=== PATIENT | male | born 1955 | race Two or more races ===

== ENCOUNTER 2022-07-27 20:23 | Emergency (ER) | payer BC, OTHER ==
[~2022-07-27] VITALS: Ht 172.7 cm; Wt 64.5 kg
[2022-07-28] MEDS ORDERED: TOBR0.3S37 OP (02:19)
[2022-07-28 02:26] VITALS: BP 145/84
== END 2022-07-28 02:30 | disposition home or self-care (01) ==
LOC: ER 20:23
DX: H00.015 Hordeolum externum left lower eyelid (principal)

== ENCOUNTER 2022-09-02 15:57 | Inpatient (IN) | payer OTHER, MEDICARE ==
[~2022-09-02] VITALS: Ht 170.2 cm; Wt 68.0 kg
[~2022-09-02 15:57] MED LIST: TOBR0.3S37 OP
[2022-09-02 16:00] VITALS: BP 122/75
[2022-09-02 18:23] LABS: Urine Bacteria NONE SEEN /hpf (None Seen); Urine Blood Negative /uL (Negative); Urine Hyaline Cast FEW /lpf (0 - 2); Urine Mucus FEW (None Seen); Urine Specific Gravity 1.031 (1.001-1.035); Urine WBC 1 /hpf (0 - 3)
[2022-09-02 18:44] LABS: Basophils # (auto) 0.1 10 ^3/uL (0-0.2); Eosinophils # (auto) 0.2 10 ^3/uL (0-0.8); Eosinophils % (auto) 2.5 % (0.0-7.0); Hematocrit 42.6 % (41.0-53.0); Hemoglobin 14.7 g/dL (13.5-17.5); Lymphocytes # (auto) 1.8 10 ^3/uL (0.4-5.4); Lymphocytes % (auto) 29.6 % (10.0-50.0); Mean Corpuscular Hemoglobin 31.5 pg (28.0-32.0); Mean Corpuscular Hgb Conc. 34.4 g/dL (32.0-36.0); Mean Corpuscular Volume 91.6 fL (80.0-100.0); Monocytes # (auto) 0.5 10 ^3/uL (0-1.3); Monocytes % (auto) 8.2 % (0.0-12.0); Neutrophils # (auto) 3.6 10 ^3/uL (1.6-8.6); Neutrophils % (auto) 58.7 % (37.0-80.0); Nucleated Red Blood Cells % 0.1 %; Red Blood Cells 4.65 10^6/uL (4.5-5.90); Red Cell Distribution Width 12.8 % (11.8-14.3); White Blood Cell 6.1 10^3/uL (4.4-10.8)
[2022-09-02 18:59] LABS: Albumin 4.2 g/dL (3.4-5.0); BUN/Creatinine Ratio 23.2; Calcium 9.4 mg/dL (8.5-10.1); Potassium 4.1 mmol/L (3.5-5.1)
[2022-09-02 19:02] LABS: Bilirubin, Total 0.7 mg/dL (0.2-1.0); Total Protein 7.3 g/dL (6.4-8.2)
[2022-09-03] MEDS ORDERED: LORazepam 0.5 MG TAB PO PRN (00:15)
[2022-09-03] MEDS ORDERED: ZOLPIDEM TARTRATE 5 MG TAB PO PRN (00:15)
[2022-09-03] MEDS ORDERED: ACETAMINOPHEN 325 MG TAB PO PRN (00:15)
[2022-09-03] MEDS ORDERED: MORPHINE SULFATE 4 MG/ML SYR/VIAL IV PRN (00:15)
[2022-09-03] MEDS ORDERED: ALUM & MAG HYDROX-SIMETH LIQ(MAALOX) 30 ML PO ONE (00:15)
[2022-09-03] MEDS ORDERED: SODIUM CHLORIDE 0.9% 1,000 ML IV SCH (00:15)
[2022-09-03] MEDS ORDERED: ONDANSETRON HCL 4 MG/2 ML VIAL IV PRN (00:15)
[2022-09-03] MEDS ORDERED: NITROGLYCERIN 0.4 MG SL TAB SL PRN (00:15)
[2022-09-03] MEDS ORDERED: LISINOPRIL 10 MG TAB PO SCH (10:00)
[2022-09-03] MEDS ORDERED: CLOPIDOGREL BISULFATE 75 MG TAB PO SCH (10:00)
[2022-09-03] MEDS ORDERED: ENOXAPARIN SOD 80 MG/0.8ML SYRINGE SC SCH (10:00)
[2022-09-03] MEDS ORDERED: ASPirin 81 mg TAB PO SCH (10:00)
[2022-09-03] MEDS ORDERED: METOPROLOL TARTRATE 25 MG TAB PO SCH (10:00)
[2022-09-03] MEDS ORDERED: DOCUSATE SOD 100 MG CAP PO SCH (10:00)
[2022-09-03] MEDS ORDERED: ATORVASTATIN 20 MG TAB PO SCH (22:00)
== END 2022-09-03 00:47 | disposition left against medical advice (07) | DRG 313 ==
LOC: ER 15:57 → TELE 09-03 00:10
PROVIDERS: ADMIT Hospitalist; ATTEND Hospitalist
DX: R07.9 Chest pain, unspecified (principal); E78.5 Hyperlipidemia, unspecified; E86.0 Dehydration; I34.1 Nonrheumatic mitral (valve) prolapse; F41.9 Anxiety disorder, unspecified; R94.4 Abnormal results of kidney function studies; Z53.29 Procedure and treatment not carried out because of patient's decision for other reasons
CPT/HCPCS: 36415; 71045; 80053; 81001; 84484; 85025; G0378